=== PATIENT | female | born 1975 | race Caucasian/White ===

== ENCOUNTER 2021-12-04 16:42 | Emergency (ER) | payer SELFPAY ==
[~2021-12-04] VITALS: Ht 180.3 cm; Wt 156.9 kg
[2021-12-04 17:10] VITALS: BP 150/68
[2021-12-04] MEDS ORDERED: PROM118S PO (17:49)
--- NOTE | 2021-12-04 17:56 | NUR ---
Patient discharged to home in stable condition. Written and verbal after care instructions given. Patient verbalizes understanding of instruction.
== END 2021-12-04 17:57 | disposition home or self-care (01) ==
LOC: ER 16:45
DX: R05.9 Cough, unspecified (principal); Z88.8 Allergy status to other drugs, medicaments and biological substances

== ENCOUNTER 2022-02-13 11:31 | Emergency (ER) | payer SELFPAY ==
[~2022-02-13] VITALS: Ht 172.7 cm; Wt 156.9 kg
[~2022-02-13 11:31] MED LIST: PROM118S PO
[2022-02-13 12:42] VITALS: BP 144/78
--- NOTE | 2022-02-13 13:00 | NUR ---
BIBS C/O COUGH X2DAYS, "I JUST WANT SOME MEDICINE AND SLEEP". OXYGEN SATURATION LEVEL IN ROOM AIR IS AT 99%. WILL CONTINUE TO MONITOR THE PATIENT.
--- NOTE | 2022-02-13 13:22 | NUR ---
SEEN AND EXAMINED BY DR REN
[2022-02-13] MEDS ORDERED: predniSONE 20 MG TABLET PO ONE (13:30)
[2022-02-13] MEDS ORDERED: PRED20TA PO (13:31)
[2022-02-13] MEDS ORDERED: PROM118S PO (13:31)
[2022-02-13] MEDS ORDERED: predniSONE 20 MG TABLET ONE (13:36)
--- NOTE | 2022-02-13 13:57 | NUR ---
Patient discharged to home in stable condition. Written and verbal after care instructions given. Patient verbalizes understanding of instruction.
== END 2022-02-13 13:58 | disposition home or self-care (01) ==
LOC: ER 11:33
DX: R05.9 Cough, unspecified (principal); R06.2 Wheezing; Z88.8 Allergy status to other drugs, medicaments and biological substances; Z79.899 Other long term (current) drug therapy
CPT/HCPCS: 99283; J7512

== ENCOUNTER 2022-06-10 10:00 | Emergency (ER) | payer SELFPAY ==
[~2022-06-10] VITALS: Ht 180.3 cm; Wt 153.3 kg
[~2022-06-10 10:00] MED LIST changes: +PRED20TA PO
[2022-06-10 10:08] VITALS: BP 142/76
[2022-06-10] MEDS ORDERED: predniSONE 20 MG TABLET ONE (10:18)
[2022-06-10] MEDS ORDERED: predniSONE 50 MG TABLET PO ONE (10:30)
== END 2022-06-10 11:01 | disposition home or self-care (01) ==
LOC: ER 10:04
DX: R05.9 Cough, unspecified (principal); Z88.8 Allergy status to other drugs, medicaments and biological substances; Z79.899 Other long term (current) drug therapy
CPT/HCPCS: 99283; J7512